=== PATIENT | female | born 2000 | race Two or more races ===

== ENCOUNTER 2024-11-30 22:26 | Emergency (ER) | payer MEDICAID, SELFPAY ==
[2024-11-30 22:28] VITALS: BMI 32.4
[2024-11-30 22:51] VITALS: BP 125/79; PULSE 93; RESP 17; TEMP 37.1; O2SAT 98
--- NOTE | 2024-11-30 22:51 | EDNOTE_ITS ---
<Statement entered by Mima Green MD - 12/01/24 04:24> As co-signing physician, I was present and available for consult prn. I concur with the plan and care as documented by the midlevel provider. ED Dental RME/HPI General Chief complaint: Dental/Oral/Throat Stated complaint: TOOTHACHE SINCE YESTERDAY Time Seen by Provider: 11/30/24 22:46 Arrival date/time: 11/30/24 22:26 RME / HPI RME / HPI Narrative: 24-year-old female patient came in for evaluation regarding left upper premolar dental cavity pain and swelling. This been ongoing since yesterday getting worse today. Patient will see her dentist this coming Monday. Denies any fever denies any difficulty swallowing. No medication was taken prior to arrival. Related Data Previous Rx's ?Medication ?Instructions ?Recorded ibuprofen 600 mg tablet 600 mg PO QID PRN fever or p ain 03/09/20 #30 tabs ondansetron HCl 4 mg tablet 4 mg PO Q6H PRN nausea and 03/09/20 (Zofran) vomiting #30 tabs clindamycin HCl 300 mg capsule 300 mg PO TID #20 caps 11/30/24 ketorolac 10 mg tablet 10 mg PO TID PRN pain 5 days #20 11/30/24 tabs Allergies Allergy/AdvReac Type Severity Reaction Status Date / Time No Known Allergies Allergy Verified 11/30/24 22:28 Review of Systems Review of Systems Narrative Review of Systems: Review of system reviewed and within normal limits except mentioned in HPI ED Exam Narrative Physical exam: VITAL SIGNS: Reviewed. GENERAL APPEARANCE: Alert and interactive, follows commands, no acute distress, HEAD AND FACE: Non-traumatic. ENT: PERRL, pink conjunctivitis, eyelid no trauma, Mucous membrane moist. Left upper premolar dental cavity with gumline swelling, with tenderness nonfluctuant NECK: Supple, nontender, no nuchal rigidity. RECTAL: Deferred. GENITAL: Deferred. NEUROLOGICAL: Gross motor function intact sensory function intact, Appropriate for age. MUSCULOSKELETAL: low back nontender, full range of motion. EXTREMITIES: Nontender, full range of motion. SKIN: Color pink, dry, no rash, no lacerations, no abrasions, no contusions. LYMPHATICS: Deferred. Course Quality Measures none Orders Category Date Time Status Clindamycin [Cleocin] Med 11/30/24 22:50 Once 300 mg PO X1 ONE Ketorolac Inj [Toradol Inj] Med 11/30/24 22:50 Once 30 mg IM X1 ONE Dental / Oral MDM Narrative MDM Narrative:: 24-year-old female patient came in for evaluation regarding left upper premolar dental cavity pain and swelling. This been ongoing since yesterday getting worse today. Patient will see her dentist this coming Monday. Denies any fever denies any difficulty swallowing. No medication was taken prior to arrival. Patient told me that she is not . Patient received Toradol IM and clindamycin p.o. Patient was advised to follow-up with her dentist Monday. Patient appears nontoxic and hemodynamically stable. Patient discharged home and instructed to follow-up with primary care provider in 24 to 48 hours. Instructed to return to the emergency department immediately if worsening of symptoms Patient data External records reviewed:: None Clinical information provided by:: patient Social determinants that could affect healthcare access:: none Patient has the following chronic illnesses:: None How is presenting disease/condition affected by chronic disease/condition?: no chronic disease Evaluation data The following diagnostics were reviewed and interpreted by me:: other (specify) Lab and/or radiology exams considered but not ordered:: None Interpretation Summary: None Medications / Prescriptions Medications or Prescriptions considered but not ordered:: none Medication administrations:: Medication Administration History Clindamycin HCl (Clindamycin 150 Mg Capsule) 300 mg PO X1 ONE Stop: 11/30/24 22:51 Ketorolac Tromethamine (Ketorolac Inj 60 Mg/2 Ml Vial) 30 mg IM X1 ONE Stop: 11/30/24 22:51 Toradol clindamycin p.o. Consultations Consultation(s) initiated? (list below): No Diagnosis Dental Differential Diagnosis: gingival abscess, dental caries and toothache Most likely diagnosis given after review of the tests above:: Infected dental caries Admission Indicated Admission indicated?: not indicated Admission Request Was there a request for admission?: No Disposition Plan Disposition Plan: Discharge Discharge Attestation Discharge Attestation: The patient was given an opportunity to ask questions and understood the discharge instructions. Discharge instructions specifically effects, indications for sooner follow up or return to the emergency department, and the expected course of current diagnosis. Patient condition: Stable Discharge Plan Plan Patient Disposition: HOME (Self Care) Discharge Disposition comment: Stable Prescriptions/Referrals Prescriptions/Med Rec: New ketorolac 10 mg tablet 10 mg PO TID PRN (Reason: pain) 5 Days Qty: 20 0RF clindamycin HCl 300 mg capsule 300 mg PO TID Qty: 20 0RF No Action ibuprofen 600 mg tablet 600 mg PO QID PRN (Reason: fever or pain) Qty: 30 0RF ondansetron HCl [Zofran] 4 mg tablet 4 mg PO Q6H PRN (Reason: nausea and vomiting) Qty: 30 0RF Problem List Clinical Impression: Infected dental caries Patient/Caregiver Discharge Instructions Discharge Activity: activity as tolerated Education Materials: Understanding Tooth Decay Additional Instructions: Thank you for the opportunity for serving you today. You are stable for discharged . You are advised to: Follow-up with your dentist in 1 to 2 days Return to ED for worsening of symptoms Increase oral fluids Take medication as prescribed Print Language: Portuguese Stand Alone Forms: Norma Award Info., Patient Portal Info Letter MARLY/ANNIA Supervising Physician MARLY/ANNIA Supervising Physician: MD Martin
[2024-11-30] MEDS: KETOROLAC INJ 60 MG/2 ML VIAL 30 MG IM (23:07)
[2024-11-30] MEDS: CLINDAMYCIN 150 MG CAPSULE 300 MG PO (23:07)
== END 2024-11-30 23:07 | disposition home or self-care (01) ==
LOC: SERX 23:13
PROVIDERS: Emergency Provider Emergency Medicine; PCP Family Medicine
DX: K02.9 Dental caries, unspecified (principal)
CPT/HCPCS: 96372; 99283; J1885; A9270